=== PATIENT | female | born 2000 | race Caucasian/White ===

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

== ENCOUNTER 2021-03-04 05:17 | Emergency (ER) | payer OTHER ==
[~2021-03-04] VITALS: Ht 170.2 cm; Wt 65.8 kg
[2021-03-04] MEDS ORDERED: ACETAMINOPHEN 325 MG TABLET PO ONE (05:30)
[2021-03-04] MEDS ORDERED: ACETAMINOPHEN 325 MG TABLET ONE (05:42)
[2021-03-04 05:55] LABS: *URINE HCG, QUAL NEGATIVE (NEGATIVE)
[2021-03-04] MEDS ORDERED: IBUP-1955 PO (06:07)
[2021-03-04] MEDS ORDERED: GUAI600T53 PO (06:07)
[2021-03-04] MEDS ORDERED: ALBU8.5H8 INH (06:07)
[2021-03-04] MEDS ORDERED: KETOROLAC TROMETHAMINE 15 MG INJ ONE (06:13)
[2021-03-04] MEDS ORDERED: KETOROLAC TROMETHAMINE 15 MG INJ IM ONE (06:15)
--- NOTE | 2021-03-04 06:25 | NUR ---
Patient in room with no distress noted.
--- NOTE | 2021-03-04 06:35 | NUR ---
Patient discharged to home in stable condition. Written and verbal after care instructions given. Patient verbalizes understanding of instructions. Stressed follow up or return to ER for worsening s/s.
[2021-03-04 06:37] VITALS: BP 123/72
== END 2021-03-04 06:37 | disposition home or self-care (01) ==
LOC: ER 05:20
DX: U07.1 COVID-19 (principal); R00.0 Tachycardia, unspecified; Z82.49 Family history of ischemic heart disease and other diseases of the circulatory system
CPT/HCPCS: 84703; 87426; 96372; 99283; J1885; A4663

== ENCOUNTER 2022-07-13 13:47 | Emergency (ER) | payer OTHER ==
[~2022-07-13] VITALS: Ht 162.6 cm; Wt 80.3 kg
[~2022-07-13 13:47] MED LIST: ALBU8.5H8 INH; GUAI600T53 PO; IBUP-1955 PO
--- NOTE | 2022-07-13 13:55 | NUR ---
Patient walked into ER with complains of nausea/ vomiting. Accompanied by mother. Patient ambulates with steady gait. Patient had 1 episode of emesis. No acute distress noted.
[2022-07-13] MEDS ORDERED: ONDANSETRON 4 MG/2 ML VIAL ONE (14:12)
[2022-07-13 14:15] LABS: HEMATOCRIT 43.8 % (31.2-41.9); MEAN CORPUSCULAR HEMOGLOBIN 27.9 uug (24.7-32.8); MEAN CORPUSCULAR VOLUME 85.3 fL (75.5-95.3); PLATELET COUNT (AUTO) 398 K/uL (179-408)
[2022-07-13] MEDS ORDERED: ONDANSETRON 4 MG/2 ML VIAL IV ONE (14:15)
[2022-07-13] MEDS ORDERED: IV NORMAL SALINE 1000 ML BAG IV ONE (14:15)
[2022-07-13 14:22] LABS: CREATININE 0.9 mg/dL (0.6-1.3); POTASSIUM 4.2 mmol/L (3.5-5.1)
[2022-07-13 14:28] LABS: BILIRUBIN,DIRECT 0.1 mg/dL (0.0-0.2); BILIRUBIN,TOTAL 0.6 mg/dL (0.2-1.0); TOTAL PROTEIN, SERUM 9.3 g/dL (6.4-8.2)
[2022-07-13] MEDS ORDERED: IOHEXOL 300MG/ML 100 ML INFUS..BTL ONE (14:56)
[2022-07-13] MEDS ORDERED: IV NORMAL SALINE 250 ML IV ONE (14:56)
[2022-07-13] MEDS ORDERED: SWABABLE VALVE TRANSFER SET EA MC ONE (14:56)
[2022-07-13 15:40] LABS: *BILIRUBIN,URIN NEGATIVE (NEGATIVE); *CLARITY,URINE CLEAR (CLEAR); *COLOR,URINE YELLOW (YELLOW); *KETONES,URINE TRACE (NEGATIVE); *UROBILINOGEN,URINE 0.2 E.U./dl (NORMAL); LEUKOCYTE ESTERASE ,URINE TRACE (NEGATIVE); NITRITE, URINE NEGATIVE (NEGATIVE); UGLUCOSE NEGATIVE (NEGATIVE)
[2022-07-13 15:42] LABS: *BLOOD, URINE TRACE (NEGATIVE)
[2022-07-13 15:43] LABS: *URINE HCG, QUAL NEGATIVE (NEGATIVE); BACTERIA,URINE FEW /HPF (NONE SEEN); SQUAMOUS EPITHELIAL CELL,UR FEW /HPF (NONE SEEN)
[2022-07-13] MEDS ORDERED: IV LACTATED RINGERS SOLUTION 1,000 ML BAG IV ONE (16:00)
--- NOTE | 2022-07-13 16:24 | NUR ---
IV fluids started to help the primary RN. SBAR to RN Bonita accordingly for END time.
--- NOTE | 2022-07-13 16:58 | NUR ---
Patient does not wish to proceed with medical care recommended by Dr. Cardona. Patient given information related to possible complications, up to and including , which could occur as a result of leaving the hospital at this time. Patient verbalizes understanding of risks involved due to leaving against medical advice. Patient has signed AMA form.
[2022-07-13] MEDS ORDERED: ONDA4TAB5 PO ×2 (16:59→17:06)
[2022-07-13 17:00] VITALS: BP 112/92
--- NOTE | 2022-07-13 17:00 | NUR ---
Patient given 8oz of juice. Patient able to tolerate fluid intake without nausea or vomiting.
--- NOTE | 2022-08-10 08:09 | NUR ---
NOTE FOR 07/13/22: IV LACTATED RINGERS 1L END TIME [id number]
== END 2022-07-13 17:25 | disposition left against medical advice (07) ==
LOC: ER 13:47
DX: R10.31 Right lower quadrant pain (principal); R10.32 Left lower quadrant pain; Z53.29 Procedure and treatment not carried out because of patient's decision for other reasons; E78.5 Hyperlipidemia, unspecified; E66.9 Obesity, unspecified; Z68.30 Body mass index [BMI] 30.0-30.9, adult; Z82.49 Family history of ischemic heart disease and other diseases of the circulatory system; D72.829 Elevated white blood cell count, unspecified
CPT/HCPCS: 99285; 74177; 96374; 96361 ×2; 80076; 80048; 81001; 84703; 83690; 85025; 84702; 36415; 87040; J2405; Q9967; J7120; J7040; A4663